=== PATIENT | female | born 1960 | race Two or more races ===

== ENCOUNTER 2020-03-11 07:52 | Day surgery (SDC) | payer OTHER ==
[~2020-03-11 07:52] MED LIST: AMBIEN10 MG PO; AVAPRO150 MG PO; CARDURA1 MG PO; CLONAZEPAM2 M1 PO; FEMARA2.5 MG PO; GABAPENTIN600 MG PO
[2020-03-11] MEDS ORDERED: PERCOCET 5-3251 EACH PO (10:56)
[2020-03-11] MEDS ORDERED: COLACE100 MG PO (10:56)
== END 2020-03-11 16:50 | disposition home or self-care (01) ==
LOC: CIR.AMB 07:52
PROVIDERS: ATTEND Surgery
DX: K60.1 Chronic anal fissure (principal); K62.4 Stenosis of anus and rectum; Z20.828 Contact with and (suspected) exposure to other viral communicable diseases